=== PATIENT | male | born 1950 | race Caucasian/White ===

== ENCOUNTER 2022-11-19 13:51 | Emergency (ER) | payer MEDICARE, SELFPAY ==
[2022-11-19 14:17] VITALS: BP 157/92; PULSE 71; RESP 16; TEMP 36.9; O2SAT 98
--- NOTE | 2022-11-19 14:41 | USR_ITS ---
PROCEDURE INFORMATION: Exam: US Scrotum Exam date and time: 11/19/2022 3:08 PM Age: 72 years old Clinical indication: Scrotum pain; Prior surgery; Surgery date: 6+ months; Surgery type: Vasectomy; Additional info: Left testicular pain and swelling TECHNIQUE: Imaging protocol: Real-time ultrasound of the scrotum and contents with color Doppler and image documentation. COMPARISON: No relevant prior studies available. FINDINGS: Right testicle: Normal. No mass. No torsion. Normal vascular flow. Left testicle: Normal. No mass. No torsion. Normal vascular flow. Epididymides: Left epididymis is enlarged in relation to the right and increased vascularity, consistent with epididymitis. Scrotum/soft tissues: Normal. US/US scrotum [id number] IMPRESSION: Left epididymitis.
[2022-11-19] MEDS: ketorolac 10 mg Tablet PO (14:51)
[2022-11-19 14:58] LABS: Urine Appearance Clear (CLEAR); Urine Color Yellow (Yellow); pH Urine 7 (5-7)
[2022-11-19 14:59] LABS: Add Urine Culture? No; Add Urine Microscopic? YES; Bacteria Urine TRACE /hpf; Bilirubin Urine Neg (Negative); Blood Urine 2+ (Negative); Glucose Urine UA Norm (Normal); Ketones Urine Negative (Negative); Leukocyte Esterase Urine Negative (Negative); Nitrate Urine Negative (Negative); Protein Urine Neg (Negative); RBC Urine 0-4 /hpf (0-2); Urobilinogen Urine Norm (Negative); WBC Urine RARE /hpf (0-5)
--- NOTE | 2022-11-19 15:51 | ED_ITS ---
HPI - Male Genitourinary General: Chief complaint: Urogenital-Male Stated complaint: Groin pain Time Seen by Provider: 11/19/22 14:22 History of Present Illness: Mr. Cornejo is a 72-year-old man that presents to the emergency department with left testicle pain that radiates into the groin. Onset of symptoms approximately 4 days ago when lifting a heavy tire. Since that time he is experienced left testicular swelling and pain. Patient has been icing it at home and has used his regularly prescribed hydrocodone without any relief. Patient reports chronic hesitancy with urination. Has not seen a urologist He denies fever or chills Associated symptoms: Deny dysuria, hematuria, nausea or vomiting Review of Systems General: Reports: 10 or more systems reviewed and unremarkable except in HPI and below Const: Denies: fever(s), chills, change in appetite, change in weight, fatigue or malaise Eyes: Denies: change in vision, eye discomfort, eye discharge or eye redness ENMT: Denies: throat pain, enlarged tonsils, odynophagia, hoarseness, ear or mastoid pain, ear discharge, change in hearing, tinnitus, nasal discharge, nasal congestion, post nasal drip or sinus pain Card: Denies: chest pain, palpitations, irregular heart rhythm, edema, dyspnea on exertion, orthopnea or leg pain with exertion Resp: Denies: dyspnea, productive cough, non-productive cough, wheezing, stridor or chest congestion GI: Denies: abdominal pain, nausea, vomiting, dysphagia, diarrhea, constipation, bloating, GI cramping or hematochezia : Denies: flank pain, dysuria, urinary frequency, urinary urgency, urinary hesitancy, oliguria or hematuria Musc: Denies: neck pain, back pain, extremity pain, joint pain, joint swelling, joint redness, joint warmth or muscle weakness Skin/Breast: Denies: rash, pruritus, erythema, photosensitivity or new lesions Neuro: Denies: headache(s), numbness in extremities, weakness in extremities, sensory changes, lack of coordination, difficulty walking, frequent falls, dizziness, confusion, Slurred speech present, difficulty communicating thoughts, seizure-like activity or involuntary movements Endo: Denies: polyuria, polydipsia or tired all the time Palomo/Lymph: Denies: easy bruising or easy bleeding Physical Exam Const: COMMON NORMALS: no acute distress, patient oriented x3 and alert GENERAL APPEARANCE: cooperative ORIENTATION/CONSCIOUSNESS: Yes awake, Yes oriented to person, Yes oriented to place and Yes oriented to time HENMT: COMMON NORMALS: normocephalic and atraumatic HEAD & SCALP: normocephalic and atraumatic FACE & SINUS: normal facial exam MOUTH: Normal oral and palatal mucosa present THROAT: posterior oropharynx normal Eye: COMMON NORMALS: Equal, round and reactive pupils present, EOMs intact bilaterally, conjunctivae normal and no scleral icterus GENERAL EYE: appearance normal, both eyes and all related structures ALIGNMENT: Yes alignment normal PERIORBITAL: periorbital findings normal CONJUNCTIVA: Yes conjunctivae normal PUPIL: Yes Equal, round and reactive pupils present Neck/C-Spine: COMMON NORMALS: full ROM GENERAL: Yes normal visual inspection Lymph: LYMPHATIC: no lymphadenopathy noted Chest: COMMONS NORMALS: normal inspection of the chest Breast/axilla inspection: Yes no chest deformity, asymmetry, normal contours, no nodules, ma sses, tenderness Resp: COMMON NORMALS: normal respiratory effort, No retractions, No use of accessory muscles and clear to auscultation bilaterally EFFORT & INSPECTION: Yes able to speak in complete sentences and Yes symmetric chest movement AUSCULTATION: clear to auscultation bilaterally Cardio: COMMON NORMALS: regular rate, regular rhythm and Peripheral pulses 2+ throughout RATE: regular rate RHYTHM: regular rhythm PERIPHERAL PULSES: Peripheral pulses 2+ throughout GI: COMMON NORMALS: Normal to inspection, nondistended, normoactive bowel sounds present, Soft to palpation, non-tender and No hepatosplenomegaly present INSPECTION: Yes normal to inspection AUSCULTATION: Yes normoactive bowel sounds PALPATION: Yes Soft to palpation and Yes No hepatosplenomegaly present RECTAL EXAM: Yes deferred : COMMON NORMALS: Yes no CVA tenderness BLADDER/KIDNEY EXAM: Yes bladder normal to palpation and Yes no CVA tenderness PENIS: normal penis SCROTUM: Yes testes descended bilaterally, Yes Cremasteric reflex present, Yes Scrotal tenderness present, Yes edematous and Yes scrotal swelling Back/Pelvis: COMMON NORMALS: no CVA tenderness Extremity: COMMON NORMALS: normal to inspection GENERAL: Yes normal exam except as noted Neuro: COMMON NORMALS: patient oriented x3 SENSORIUM/ORIENTATION: Yes alert, Yes oriented to person, Yes oriented to place and Yes oriented to time CRANIAL NERVES: Yes CN normal except as noted Psych: COMMON NORMALS: mental status grossly normal, Normal thought process present, cooperative, activity/motor behavior normal, denies homicidal ideation and denies suicidal ideation THOUGHT PROCESS: Normal thought process present Skin: COMMON NORMALS: no rashes or lesions noted, no wounds and turgor normal GENERAL SKIN EXAM: no rashes or lesions noted and turgor normal Course Vital Signs: Vital signs: Vital Signs Temperature 98.5 F 11/19/22 14:17 Pulse Rate 71 11/19/22 14:17 Respiratory Rate 16 11/19/22 14:17 Blood Pressure 157/92 11/19/22 14:17 Pulse Oximetry 98 11/19/22 14:17 Oxygen Delivery Me thod Room Air 11/19/22 14:17 MDM - Male Medical Decision Making Differential diagnosis include: Testicular lesion, testicular torsion, epididymitis, hernia Patient was evaluated in the emergency department for complaints of left testicular pain. Onset of symptoms 4 days ago while lifting heavy object. Patient is currently treated for atrial fibrillation hypertension high cholesterol and chronic neck/back pain. He denies any falls or injuries. On exam his left testicle is swollen and tender to palpation. Exam was performed with Edward QURESHI. As a result I did order an ultrasound of the testicles, urinalysis. Urinalysis reveals some blood 0-4 and ultrasound reveals epididymitis. Patient was treated here in the emergency department both for his pain as well as for epididymitis. He is going to discharge home with urology follow-up. All questions answered in detail Lab Data Radiology Impressions Scrotum Ultrasound 11/19/22 14:41 IMPRESSION: Left epididymitis. Laboratory Results Urine Color Yellow (Yellow) 11/19/22 14:43 Urine Appearance Clear (CLEAR) 11/19/22 14:43 Urine pH 7 (5-7) 11/19/22 14:43 Ur Specific Masterson 1.010 (1.005-1.030) 11/19/22 14:43 Urine Protein Neg (Negative) 11/19/22 14:43 Urine Glucose (UA) Norm (Normal) 11/19/22 14:43 Urine Ketones Negative (Negative) 11/19/22 14:43 Urine Blood 2+ (Negative) H 11/19/22 14:43 Urine Nitrate Negative (Negative) 11/19/22 14:43 Urine Bilirubin Neg (Negative) 11/19/22 14:43 Urine Urobilinogen Norm mg/dL (Negative) 11/19/22 14:43 Ur Leukocyte Esterase Negative (Negative) 11/19/22 14:43 Urine RBC 0-4 /hpf (0-2) H 11/19/22 14:43 Urine WBC Rare /hpf (0-5) 11/19/22 14:43 Ur Squamous Epith Cells None /hpf (0-5) 11/19/22 14:43 Amorphous Sediment Not Reportable 11/19/22 14:43 Urine Bacteria Trace /hpf (NONE) 11/19/22 14:43 Discharge Plan Discharge Patient Disposition: Home Clinical Impression: Epididymitis Condition: Stable Prescriptions: New levofloxacin 500 mg tablet 500 mg PO DAILY 10 Days Qty: 10 0RF No Action alprazolam 1 mg tablet 1 mg PO BID terazosin 1 mg capsule 1 mg PO QPM hydrocodone-acetaminophen 10-325 mg tablet 1 tab PO Q6H warfarin 6 mg tablet 6 mg PO DAILY metoprolol tartrate 25 mg tablet 25 mg PO TID losartan-hydrochlorothiazide 100-12.5 mg tablet 1 tab PO DAILY Discharge Orders: Discharge ED (Routine); Ordered 11/19/22 Ordered By: Juanjose Brewster Referrals: Sidney Faria Jr, [Primary Care Provider] - Discharge Diet: Advance as tolerated Discharge Activity: Resume usual activity Patient Instructions: Epididymitis (ED), Opioid Safety, Pain Management Activity Restrictions/Additional Instructions: Please return to the emergency department for new concerning or worsening symptoms Coding Level of Care Code ED Hot Plate [employer] Press Offbearer for Lucia Cheney
[2022-11-19] MEDS: levoFLOXacin 500 mg Tablet PO (16:13)
[2022-11-19 16:25] VITALS: BP 157/92; PULSE 71; RESP 16; O2SAT 98
--- NOTE | 2022-11-21 08:48 | DCPLANNER ---
Addendum entered by Nicole Joyner 11/22/22 08:48: manager financial received the following message from the front office staff at urology regarding follow up appointment: Please send elsewhere to another urologist. Thank you. manager financial called patient at phone number [phone] to explain patient would need to be somewhere else, and ask patient where he would like to be referred to. manager financial unable to speak with patient or leave a voicemail for patient. Original Note: manager financial had message to schedule a follow up appointment for patient with urology. manager financial sent patients information to the front office staff at urology. Patients information will be printed and reviewed. Clinic will call patient with appointment information.
== END 2022-11-19 16:30 | disposition home or self-care (01) ==
PROVIDERS: Emergency Provider Nurse Practitioner; PCP Family Medicine
DX: N45.1 Epididymitis (principal); Z79.01 Long term (current) use of anticoagulants
CPT/HCPCS: 76870; 81001; 99284

== ENCOUNTER 2025-04-10 18:51 | Emergency (ER) | payer MEDICARE, SELFPAY ==
[2025-04-10 18:58] VITALS: BP 189/92; PULSE 71; RESP 18; TEMP 36.8; O2SAT 97
--- NOTE | 2025-04-10 18:58 | XRR_ITS ---
PROCEDURE INFORMATION: Exam: XR Chest Exam date and time: 04/10/2025 7:00 PM Age: 75 years old Clinical indication: Pain; Chest pressure; Additional info: Cp TECHNIQUE: Imaging protocol: Radiologic exam of the chest. Views: 1 view. COMPARISON: No relevant prior studies available. FINDINGS: Lungs: Left lower lobe atelectasis. Pleural spaces: Trace left pleural effusion. Heart/Mediastinum: Unremarkable. No cardiomegaly. Bones/joints: Unremarkable. XR/XR chest 1V portable [id number] IMPRESSION: 1. Left lower lobe atelectasis. 2. Trace left pleural effusion.
--- NOTE | 2025-04-10 18:58 | ECG_ITS ---
[facility] Test Date: 2025-04-10 Pat Name: Silvio Cornejo Department: Room: Gender: Male Hospital Secretary: : 1950 Requested By: Jane Plaza Order Number: [id number] Yayo MD: John Paul Hudson M.D. Measurements Intervals [place] Rate: 67 P: 71 CO: 172 QRS: -17 QRSD: 81 T: 66 QT: 377 QTc: 401 Interpretive Statements SINUS RHYTHM POSSIBLE RIGHT VENTRICULAR CONDUCTION DELAY [RSR (QR) IN V1/V2] No previous ECG available for comparison Electronically Signed On 04-12-2025 12:02:13 CDT by John Paul Hudson M.D. [email or web address]
--- OUTSIDE RECORDS SUMMARY | 2025-04-10 18:58 | XMS_ITS | Clinical Summary ---
Author Organization [facility] Address [address] [place] [address] Care Team Providers Care Plisse Machine Operator Name Role Phone Garo Salinas MD Primary Care Provider [phone] Social History Tobacco Use Types Packs/Day Years Used Date Smoking Tobacco: Never Assessed Sex and Gender Information Value Date Recorded Sex Assigned at Not on file Legal Sex Male 7:56 PM CDT Gender Identity Not on file Sexual Orientation Not on file Plan of Treatment Not on file Care Teams Plisse Machine Operator Relationship Specialty Start Date End Date Garo Salinas MD [address] [facility] [place] [address] PCP - General 02/22/10
[2025-04-10 19:37] LABS: Hematocrit 38.5 % (37-53); Hemoglobin 13.10 g/dL (11.27-16.99); Mean Corpuscular HGB Conc 34.0 g/dL (30-55); Mean Corpuscular Hemoglobin 32.2 pg (27-33); Mean Corpuscular Volume 94.6 fl (82-101); Nucleated Red Blood Cells % 0 %; Platelet Count 141 10^3/cmm (157-399); Red Blood Count 4.07 10^6/uL (3.85-5.65); White Blood Count 5.67 10^3/uL (3.29-11.43)
[2025-04-10 19:56] LABS: INR 1.95 (0.8-1.2); Prothrombin Time 23.40 SECONDS (12.1-14.9)
[2025-04-10 19:58] LABS: Alanine Aminotransferase 8 U/L (0-41); Albumin Level 4.4 g/dL (3.5-5.2); Alkaline Phosphatase 80 U/L (40-130); Anion Gap 14.9 (5-19); Aspartate Amino Transferase 14 U/L (0-40); Blood Urea Nitrogen 20 mg/dL (8-23); Calcium 9.2 mg/dL (8.5-10.5); Carbon Dioxide 28 mmol/L (22-29); Chloride 96 mmol/L (98-107); Globulin 2.6 g/dL (1.3-4.6); Glucose 95 mg/dL (65-115); Lipase 16 U/L (13-60); Osmolality Calculated 282 mOsm/kg (285-295); Potassium 3.9 mmol/L (3.5-5.1); Sodium 135 mmol/L (136-145); Total Protein 7.0 g/dL (6.6-8.7)
[2025-04-10 20:06] LABS: Troponin(5th) Baseline 16 ng/L (0-15)
--- NOTE | 2025-04-10 20:26 | CTR_ITS ---
PROCEDURE INFORMATION: Exam: CT Head Without Contrast Exam date and time: 04/10/2025 8:31 PM Age: 75 years old Clinical indication: Pain; Headache; DOOLEY TECHNIQUE: Imaging protocol: Computed tomography of the head without contrast. Radiation optimization: All CT scans at this facility use at least one of these dose optimization techniques: automated exposure control; mA and/or kV adjustment per patient size (includes targeted exams where dose is matched to clinical indication); or iterative reconstruction. COMPARISON: No relevant prior studies available. RADIATION DOSE METRICS: Total DLP (mGy-cm): 1219.18 FINDINGS: Brain: Moderate diffuse white matter disease likely reflecting chronic microvascular ischemic changes. Cerebral ventricles: No ventriculomegaly. Paranasal sinuses: Visualized sinuses are unremarkable. No fluid levels. Mastoid air cells: Visualized mastoid air cells are well aerated. Bones: Unremarkable. No acute fracture. Soft tissues: Unremarkable. CT/CT head wo con* [id number] IMPRESSION: Negative for intracranial hemorrhage or mass effect.
--- NOTE | 2025-04-10 20:29 | W.ED.CHESTPA ---
HPI - Chest Pain General: Chief Complaint: Chest Pain Stated Complaint: CP jaw pain Time Seen by Provider: 04/10/25 20:23 Source: patient Mode of arrival: ambulatory Limitations: no limitations History of Present Illness: 75-year-old male states he had an episode of chest pain today around 1:00. States it is a sharp pain in his chest went to both shoulders and jaw and had some lightheadedness as well. States pain is resolved he still has a mild headache. States he had a similar episode last week was taken to [place] and discharged. He denies any fever does have a history hypertension has not taken his meds today. Related Data Home Medications ?Medication ?Instructions ?Recorded ?Confirmed alprazolam 1 mg tablet 1 mg PO BID 11/19/22 11/19/22 hydrocodone 10 mg-acetaminophen 1 tab PO Q6H 11/19/22 11/19/22 325 mg tablet losartan 100 1 tab PO DAILY 11/19/22 11/19/22 mg-hydrochlorothiazide 12.5 mg tablet metoprolol tartrate 25 mg tablet 25 mg PO TID 11/19/22 11/19/22 terazosin 1 mg capsule 1 mg PO QPM 11/19/22 11/19/22 warfarin 6 mg tablet 6 mg PO DAILY 11/19/22 11/19/22 Allergies Allergy/AdvReac Type Severity Reaction Status Date / Time No Known Allergies Allergy Verified 11/19/22 14:19 Review of Systems Card: Reports: chest pain Physical Exam Const: COMMON NORMALS: no acute distress, patient oriented x3 and healthy appearing HENMT: COMMON NORMALS: normocephalic and atraumatic HEAD & SCALP: normocephalic and atraumatic Eye: COMMON NORMALS: Equal, round and reactive pupils present and EOMs intact bilaterally PUPIL: Yes Equal, round and reactive pupils present Neck/C-Spine: COMMON NORMALS: full ROM and supple Chest: COMMONS NORMALS: normal inspection of the chest and normal palpation of entire chest wall Resp: COMMON NORMALS: normal respiratory effort, No retractions, No use of accessory muscles and clear to auscultation bilaterally AUSCULTATION: clear to auscultation bilaterally Cardio: COMMON NORMALS: regular rate, regular rhythm and No murmurs present (Cardio) RATE: regular rate RHYTHM: regular rhythm GI: COMMON NORMALS: Normal to inspection, nondistended, normoactive bowel sounds present, Soft to palpation, non-tender and no masses PALPATION: Yes Soft to palpation Extremity: COMMON NORMALS: normal to inspection and full ROM Neuro: COMMON NORMALS: patient oriented x3, moves all extremities and no focal motor deficits Psych: COMMON NORMALS: mental status grossly normal, Normal thought process present and cooperative THOUGHT PROCESS: Normal thought process present Skin: COMMON NORMALS: no rashes or lesions noted and no wounds GENERAL SKIN EXAM: no rashes or lesions noted Course Vital Signs: Vital signs: Vital Signs Temperature 98.3 F 04/10/25 18:58 Pulse Rate 70 04/10/25 21:51 Respiratory Rate 18 04/10/25 18:58 Blood Pressure 169/94 04/10/25 21:51 Pulse Oximetry 98 04/10/25 21:51 Oxygen Delivery Me thod Room Air 04/10/25 21:15 MDM - Chest Pain Medical Decision Making Patient presents. Chest pain along with headache. Differential include ACS, pulmonary emboli, aortic dissection. Patient's been well-appearing here and pain-free his pain is atypical in nature he is no signs of ACS initial and repeat troponins were normal EKG showed no acute abnormalities EKG showed normal sinus rhythm heart rate [address] elevation QRS 81 QTc 393. Did interpret his chest x-ray and it was normal. He has had no pain while here and had some lightheadedness and headache and a head CT was performed which was negative. I did go over all these findings with him and he would like to go home I feel he is stable for discharge at this time as well. He is to follow-up with cardiology along with his PCP and return if worsening he understands agrees to plan Medical Records I reviewed the patient's medical records. Lab Data I reviewed the patient's lab results. 04/10/25 19:21 04/10/25 19:21 Radiology Impressions Chest X-Ray 04/10/25 18:58 IMPRESSION: 1. Left lower lobe atelectasis. 2. Trace left pleural effusion. Head CT 04/10/25 20:26 IMPRESSION: Negative for intracranial hemorrhage or mass effect. Laboratory Results WBC 5.67 10^3/uL (3.29-11.43) 04/10/25 19:21 RBC 4.07 10^6/uL (3.85-5.65) 04/10/25 19:21 Hgb 13.10 g/dL (11.27-16.99) 04/10/25 19:21 Hct 38.5 % (37-53) 04/10/25 19:21 MCV 94.6 fl (82-101) 04/10/25 19:21 MCH 32.2 pg (27-33) 04/10/25 19:21 MCHC 34.0 g/dL (30-55) 04/10/25 19:21 RDW 12.3 % (12.1-15.1) 04/10/25 19:21 Plt Count 141 10^3/cmm (157-399) L 04/10/25 19:21 MPV 11.7 fL (7.4-10.4) H 04/10/25 19:21 Neut % (Auto) 52.5 % 04/10/25 19:21 Lymph % (Auto) 39.3 % 04/10/25 19:21 [place] % (Auto) 5.6 % 04/10/25 19:21 Eos % (Auto) 1.9 % 04/10/25 19:21 Baso % (Auto) 0.5 % 04/10/25 19:21 Neut # (Auto) 2.97 10^3/uL (1.8-7.7) 04/10/25 19:21 Lymph # (Auto) 2.2 10^3/uL (0.8-4.8) 04/10/25 19:21 [place] # (Auto) 0.3 10^3/uL (0.2-0.9) 04/10/25 19:21 Eos # (Auto) 0.1 10^3/uL (0.0-0.8) 04/10/25 19:21 Baso # (Auto) 0.0 10^3/uL (0.0-0.1) 04/10/25 19:21 Nucleated RBC % (auto) 0 % 04/10/25 19: Nucleated RBCs # 0.0 /100WBC 04/10/25 19:21 PT 23.40 SECONDS (12.1-14.9) H 04/10/25 19:21 INR 1.95 (0.8-1.2) H 04/10/25 19:21 Sodium 135 mmol/L (136-145) L 04/10/25 19:21 Potassium 3.9 mmol/L (3.5-5.1) 04/10/25 19:21 Chloride 96 mmol/L (98-107) L 04/10/25 19:21 Carbon Dioxide 28 mmol/L (22-29) 04/10/25 19:21 Anion Gap 14.9 (5-19) 04/10/25 19:21 BUN 20 mg/dL (8-23) 04/10/25 19:21 Creatinine 0.8 mg/dL (0.7-1.2) 04/10/25 19:21 GFR Calculation Not Reportable 04/10/25 19:21 Glucose 95 mg/dL (65-115) 04/10/25 19:21 Calculated Osmolality 282 mOsm/kg (285-295) L 04/10/25 19:21 Calcium 9.2 mg/dL (8.5-10.5) 04/10/25 19:21 Total Bilirubin 1.2 mg/dL (0.15-1.2) 04/10/25 19:21 AST 14 U/L (0-40) 04/10/25 19:21 ALT 8 U/L (0-41) 04/10/25 19:21 Alkaline Phosphatase 80 U/L (40-130) 04/10/25 19:21 Troponin T Baseline 16 ng/L (0-15) H 04/10/25 19:21 Troponin T 120 Minute 16.06 ng/L (0-15) H 04/10/25 21:07 Delta Troponin T 0.06 ABS# (0-10) 04/10/25 21:07 Total Protein 7.0 g/dL (6.6-8.7) 04/10/25 19:21 Albumin 4.4 g/dL (3.5-5.2) 04/10/25 19:21 Globulin 2.6 g/dL (1.3-4.6) 04/10/25 19:21 Lipase 16 U/L (13-60) 04/10/25 19:21 All radiology interpretation(s) finalized by discharge EKG Data EKG 1: I personally reviewed and interpreted this EKG as follows: EKG interpretation date: 04/10/25 EKG interpretation time: 18:56 Interpretation: nsr hr [address] elevation qrs 81 qtc 393 EKG 2: I personally reviewed and interpreted this EKG as follows: EKG interpretation date: 04/10/25 EKG interpretation time: 20:43 Interpretation: nsr hr [address] elevation qrs 79 qtc 393 Discharge Plan Discharge Patient Disposition: Home Clinical Impression: Headache Chest pain Qualifiers: Chest pain type: unspecified Qualified Code(s): R07.9 - Chest pain, unspecified Condition: Stable Prescriptions: No Action alprazolam 1 mg tablet 1 mg PO BID terazosin 1 mg capsule 1 mg PO QPM hydrocodone-acetaminophen 10-325 mg tablet 1 tab PO Q6H warfarin 6 mg tablet 6 mg PO DAILY metoprolol tartrate 25 mg tablet 25 mg PO TID losartan-hydrochlorothiazide 100-12.5 mg tablet 1 tab PO DAILY Discharge Orders: Discharge ED (Routine); Ordered 04/10/25 Ordered By: Jane Plaza Referrals: Giana Will,Sidney Stiles, [Primary Care Provider, Family Practice] - 4-7 days Discharge Diet: Advance as tolerated Discharge Activity: Resume usual activity Patient Instructions: Chest Pain (ED) Print Language: Paraguayan Coding Level of Care Code ED Train Master for Chg Fwd Heart Score HEART Score Components History: Slightly Suspicous EKG: Normal Age: 65 or more yrs Risk Factors: 1 or 2 Risk Factors Troponin: Baseline Trop 16-45 ng/L HEART Score RESULT HEART Score: 4
[2025-04-10 20:31] VITALS: BP 180/110; PULSE 65; O2SAT 98
--- NOTE | 2025-04-10 20:43 | ECG_ITS ---
[facility] Test Date: 2025-04-10 Pat Name: Silvio Cornejo Department: Room: Gender: Male Store Lead: : 1950 Requested By: Jane Plaza Order Number: [id number] Yayo MD: John Paul Hudson M.D. Measurements Intervals [place] Rate: 63 P: 74 MT: 181 QRS: -16 QRSD: 79 T: 43 QT: 385 QTc: 397 Interpretive Statements SINUS RHYTHM Compared to ECG 04/10/2025 18:56:39 No significant changes Electronically Signed On 04-12-2025 12:09:13 CDT by John Paul Hudson M.D. [email or web address] [id number]
[2025-04-10] MEDS: labetalol 5 mg/mL SDV 20mL 10 MG IVP (21:13)
[2025-04-10 21:15] VITALS: BP 176/87; PULSE 68; O2SAT 97
[2025-04-10 21:36] LABS: Troponin 5 2HR 16.06 ng/L (0-15); Troponin 5 2HR Delta 0.06 ABS# (0-10)
[2025-04-10 21:51] VITALS: BP 169/94; PULSE 70; O2SAT 98
--- NOTE | 2025-04-11 07:59 | DCPLANNER ---
messaged heart care for er f/u
== END 2025-04-10 21:58 | disposition home or self-care (01) ==
PROVIDERS: Emergency Provider Emergency Medicine; PCP Family Medicine
DX: R51.9 Headache, unspecified (principal); R07.9 Chest pain, unspecified; Z79.01 Long term (current) use of anticoagulants
CPT/HCPCS: 36415; 70450; 71045; 80053; 83690; 84484; 85025; 85610; 93005; 96374; 99285; J3490; J9999

== ENCOUNTER → 2025-04-17 12:20 | Outpatient (BNVA) | payer MEDICARE, SELFPAY | PROVIDERS: PCP Family Medicine; Visit Provider Internal Medicine Cardiovascular Disease | DX: I48.91 Unspecified atrial fibrillation (principal); R07.9 Chest pain, unspecified; I10 Essential (primary) hypertension; F17.200 Nicotine dependence, unspecified, uncomplicated; Z79.01 Long term (current) use of anticoagulants | CPT/HCPCS: 99214 ==

== ENCOUNTER 2025-05-14 09:03 | Outpatient (CLI) | payer MEDICARE, SELFPAY ==
[2025-05-14 09:17] VITALS: BMI 23.6
--- NOTE | 2025-05-14 09:18 | ECG_ITS ---
[employer] Test Date: 2025-05-14 Pat Name: Silvio Cornejo Department: Room: Gender: Male Family Dinner Service Specialist: : 1950 Requested By: Usha Figueroa Order Number: [id number] Yayo MD: John Paul Hudson M.D. Interpretive Statements EXERCISE MIBI EXERCISE DATA: The patient was exercised by George protocol. Baseline heart rate was 69 beats per minute. Baseline blood pressure was 178/91 millimeters of mercury. Maximal predicted heart rate was 146 beats per minute. Maximum heart rate achieved was 146 which was 100% of the maximum predicted heart rate. Maximum blood pressure cji488/105 millimeters of mercury. Total exercise time was 2 minutes and 53 seconds. Maximum METs achieved was 4.6. The reason for ending the test was maximal effort achieved. The patient complained of shortness of breath during the stress test, which then resolved at the end of the test. ELECTROCARDIOGRAM: BASELINE: Showed sinus rhythm, normal axis, no significant ST-T changes at the baseline noted. [] EXERCISE: At the peak exercise level, [] No significant ST-T changes suggestive of ischemia noted. [] RECOVERY: During the recovery period, heart rate dropped appropriately. No significant ST-T changes in the recovery suggestive of ischemia noted. [] CONCLUSION: 1. Exercise capacity is poor 2. Heart rate response was appropriate 3. Blood pressure response was appropriate 4. Symptoms not suggestive of ischemia. 5. Electrocardiogram portion of the stress test was not suggestive of ischemia. 6. Nuclear scan will be documented separately. Electronically Signed On 05-20-2025 11:06:40 DIRECTOR HOUSEKEEPING by John Paul Hudson M.D. [email or web address] [id number]
--- NOTE | 2025-05-14 09:18 | NMCV_ITS ---
NM chris perf SPECT r/s* [id number] Silvio Cornejo Age: 75 Gender: M : 1950 Exam Date: 05/14/2025 09:45 Ordering Phys: Usha Figueroa MD ([email or web address]) Technologist: MAYELIN Alcazar Exam Location: [facility] Indications: cp STRESS TEST Please see separate stress test report in [facility] for full findings IMAGE PROTOCOL Rest/Stress 1 Exercise Day Radiopharmaceutical Dose (mCi) Administration Site Administered by Rest: Tc-99m 10.3 IV MAYELIN Alcazar Sestamibi Stress:Tc-99m 32.6 IV MAYELIN Reynolds Sestamibi Rest: 14-May-2025 60 Discovery 630 Stress: 14-May-2025 30 Discovery 630 Radiopharmaceutical was injected at 93 % maximum heart rate. Images obtained in supine and prone position. SPECT RESULTS Technical Quality: Good Raw Data Analysis: Normal Image Corrections: No attenuation or motion correction applied Summed Stress Score: 0 Summed Rest Score: 4 Summed Difference Score: 0 PERFUSION FINDINGS SPECT images demonstrate homogeneous tracer distribution throughout the myocardium. FUNCTIONAL RESULTS (calculated via Gated SPECT) Stress Image LV EF (%): 84 Stress EDV (mL):57 TID: 0.83 Stress ESV (mL):9 FUNCTIONAL FINDINGS: There is normal left ventricular systolic function. IMPRESSIONS 1. Normal myocardial perfusion imaging with no evidence of ischemia 2. LV systolic function is normal John Paul Hudson MD (Electronically Signed) Final Date: 17 May 2025 11:47 S
[2025-05-14 11:41] VITALS: BP 159/98; PULSE 86
--- NOTE | 2025-05-14 14:15 | USCV_ITS ---
Silvio Cornejo Age: 75 Gender: M : 1950 Exam Date: 05/14/2025 13:55 Ordering Phys: Usha Figueroa MD ([email or web address]) Technologist: Exam Location: [facility] [place] Indication: cp BP: 120 / 70 HR: 75 Rhythm: Sinus Technical Quality: MEASUREMENTS (Male / Female) Normal Values 2D ECHO LV Diastolic Diameter PLAX 4.1 cm 4.2 - 5.9 / 3.9 - 5.3 cm IVS Diastolic Thickness 1.1 cm 0.6 - 1.0 / 0.6 - 0.9 cm IVS Systolic Thickness 1.4 cm LVPW Diastolic Thickness 1.3 cm 0.6 - 1.0 / 0.6 - 0.9 cm LVPW Systolic Thickness 1.6 cm LV Ejection Fraction 2D Teich 65.9 % LV Ejection Fraction MOD 4C 66.4 % LV Ejection Fraction MOD 2C 62.9 % LV Ejection Fraction 2C AL 62.0 % RA Systolic Volume 4C AL 32.1 ml RA Systolic Volume 4C MOD 32.1 ml IVC Diameter 1.6 cm M-MODE LA Ao Ratio MM 1.3 AV Cusp Separation MM 2.2 cm DOPPLER AV Peak Velocity 140.0 cm/s LVOT Peak Velocity 79.0 cm/s MV Peak Velocity 95.0 cm/s MV Area PHT 2.5 cm squared Mitral E to A Ratio 0.7 TV Peak Velocity 152.5 cm/s TR Peak Velocity 156.0 cm/s TR Peak Gradient 9.7 mmHg TV Peak E Velocity 75.0 cm/s FINDINGS Left Ventricle Normal left ventricular size, systolic function and wall thickness, with no regional wall motion abnormalities. Normal left ventricular size and systolic function, EF 60% . Right Ventricle Normal right ventricular size and systolic function. Right Atrium Normal right atrial size. Left Atrium Normal left atrial size. IA Septum Normal interatrial septum. Mitral Valve Mildly thickened mitral valve. Trace mitral valve regurgitation. Aortic Valve Thickened aortic valve. No aortic valve stenosis. Tricuspid Valve Structurally normal tricuspid valve. Trace tricuspid valve regurgitation. Normal RV and pulmonary pressure (15 mmhg). Pulmonic Valve trace pulmonary valve regurgitation. onic valve not well visualized. Pericardium No pericardial effusion. Aorta Normal size aortic root and proximal ascending aorta. IVC Normal inferior vena cava. CONCLUSIONS Normal left ventricular size and wall motion. Estimated LVEF normal 60%. No significant valvular abnormality noted. Normal right heart and pulmonary pressures. Mireille Cervantes MD (Electronically Signed) Final Date: 19 May 2025 15:45 S
== END 2025-05-14 09:04 | disposition home or self-care (01) ==
LOC: CDL 09:05
PROVIDERS: PCP Family Medicine; Visit Provider Internal Medicine Cardiovascular Disease
DX: R07.9 Chest pain, unspecified (principal); R06.02 Shortness of breath; I48.91 Unspecified atrial fibrillation
CPT/HCPCS: 36415; 78452; 93017; 93306; A9500